=== PATIENT | male | born 1940 | race Caucasian/White ===

== ENCOUNTER 2016-09-22 09:12 | Inpatient (IN) | payer MEDICARE ==
[~2016-09-22] VITALS: Ht 185.4 cm; Wt 105.7 kg
[2016-09-22] MEDS ORDERED: CELE200C PO (09:47)
[2016-09-22] MEDS ORDERED: DIPH25TA2 PO (09:47)
[2016-09-22] MEDS ORDERED: EYECAP PO (09:47)
[2016-09-22] MEDS ORDERED: ASPI1TAB69 PO (09:47)
[2016-09-22] MEDS ORDERED: VESI5TAB PO (09:47)
[2016-09-22] MEDS ORDERED: MULTTAB67 PO (09:47)
[2016-09-22] MEDS ORDERED: ACET500T3 PO (09:47)
[2016-09-22] MEDS ORDERED: HYDR-3583 PO (09:47)
[2016-09-22] MEDS ORDERED: FLUT1SPR5 EACH NARE (09:47)
[2016-09-22] MEDS ORDERED: MUCI600T PO (09:47)
[2016-09-22] MEDS ORDERED: LIPI20TA PO (09:47)
[2016-09-22] MEDS ORDERED: ATAC16TA PO (09:47)
[2016-10-02] MEDS ORDERED: CHLORHEXIDINE GLUCONATE 4% SOLN 120 ML BTL TOP SCH (07:30)
[2016-10-02] MEDS ORDERED: SODIUM CHLORID 0.9% 500 ML IV SCH (07:30)
[2016-10-02] MEDS ORDERED: LACTATED RINGER'S 1000 ML IV SCH (07:30)
[2016-10-02] MEDS ORDERED: INSULIN HUMAN REGULAR 1,000 UNITS/10 ML VIAL SQ PRN (07:30)
[2016-10-02] MEDS ORDERED: ceFAZolin 2 GM PREMIX 50 ML IV SCH (07:30)
[2016-10-02] MEDS ORDERED: METOPROLOL TARTRATE 25 MG TAB PO PRN (07:30)
[2016-10-02 07:55] VITALS: BP 136/79; PULSE 86; RESP 20; TEMP 97.3; O2SAT 97
[2016-10-02] MEDS ORDERED: EXPAREL PERI-ARTICULAR INJECTION (TOTAL VOL. 60 ML) P-ARTICULR SCH ×2 (10:00)
[2016-10-02] MEDS ORDERED: TRANEXAMIC ACID IV SCH ×2 (10:00→13:00)
[2016-10-02] MEDS ORDERED: SODIUM CHLORIDE 0.9% IV SCH ×2 (10:00→13:00)
== END 2016-10-02 08:40 | disposition home or self-care (01) | DRG 554 ==
LOC: HSDI 10-02 06:59 → EDUNIT# 10-02 10:00
PROVIDERS: ADMIT Orthopaedic Surgery; ATTEND Orthopaedic Surgery
DX: M19.011 Primary osteoarthritis, right shoulder (principal); I10 Essential (primary) hypertension; Z53.09 Procedure and treatment not carried out because of other contraindication
CPT/HCPCS: 99211; G0463

== ENCOUNTER → 2016-09-22 | Outpatient (CLI) | payer MEDICARE ==
[~2016-09-22] MED LIST: ACET500T3 PO; ASPI1TAB69 PO; ATAC16TA PO; CELE200C PO; DIPH25TA2 PO; EYECAP PO; FLUT1SPR5 EACH NARE; HYDR-3516 PO; HYDR-3583 PO; LIPI20TA PO; MUCI600T PO; MULTTAB67 PO; VESI5TAB PO
[2016-09-22 09:40] LABS: MEAN CELL VOLUME 88.7 FL (80.0-100.0); MEAN CORPUSCULAR HEMOGLOBIN 30.2 PG (27.0-34.0); PLATELET COUNT 212 TH/MM3 (150-450); RED BLOOD COUNT 4.85 MIL/MM3 (4.50-5.90); RED CELL DISTRIBUTION WIDTH 13.1 % (11.6-17.2); REVIEW FLAG FINAL; WHITE BLOOD COUNT 6.4 TH/MM3 (4.0-11.0)
[2016-09-22 09:49] LABS: APTT (PATIENT) 28.2 SEC (24.3-30.1); PROTHROMBIN TIME - PATIENT 11.6 SEC (9.8-11.6)
[2016-09-22 10:08] LABS: BICARBONATE 28.4 MEQ/L (21.0-32.0); POTASSIUM 4.6 MEQ/L (3.5-5.1)
[2016-09-22 10:09] LABS: BLOOD, URINE SMALL (NEG); COMMENT (UR) CULT NOT INDICATED; CULTURE IF INDICATED CULT NOT INDICATED; GLUCOSE,URINE NEG (NEG); KETONE, URINE NEG (NEG); MUCUS URINE FEW /lpf (OCC); NITRITE,URINE NEG (NEG); PH, URINE 5.5 (5.0-8.5); SQUAMOUS EPITHELIAL CELL URINE 1 /hpf (0-5); URINE COLOR YELLOW (YELLW/STRAW)
--- NOTE | 2016-09-23 18:18 | EKG ---
Date Performed: 09/22/2016 Time Performed: 09:39:57 PTAGE: 75 years EKG: Sinus rhythm INFERIOR MYOCARDIAL INFARCTION, PROBABLY OLD ABNORMAL ECG NO PREVIOUS TRACING DOCTOR: Jose Tinsley Interpretating Date/Time 09/23/2016 18:13:28
== END ==
LOC: CPRE 09:06
PROVIDERS: ATTEND Orthopaedic Surgery
DX: Z01.812 Encounter for preprocedural laboratory examination (principal); Z01.810 Encounter for preprocedural cardiovascular examination; M19.011 Primary osteoarthritis, right shoulder; M79.609 Pain in unspecified limb; I10 Essential (primary) hypertension; I25.2 Old myocardial infarction
CPT/HCPCS: 36415; 80048; 81001; 85027; 85610; 85730; 93005

== ENCOUNTER 2016-10-12 05:07 | Day surgery (SDC) | payer MEDICARE ==
[~2016-10-12] VITALS: Ht 185.4 cm; Wt 104.5 kg
[~2016-10-12 05:07] MED LIST changes: -HYDR-3516 PO
[2016-10-12] MEDS ORDERED: METOPROLOL TARTRATE 25 MG TAB PO PRN (05:45)
[2016-10-12] MEDS ORDERED: INSULIN HUMAN REGULAR 1,000 UNITS/10 ML VIAL SQ PRN (05:45)
[2016-10-12] MEDS ORDERED: CHLORHEXIDINE GLUCONATE 4% SOLN 120 ML BTL TOP SCH (05:45)
[2016-10-12 05:47] VITALS: BP 139/78; PULSE 88; RESP 16; TEMP 98.6; O2SAT 97
[2016-10-12 06:00] VITALS: PULSE 86
[2016-10-12] MEDS ORDERED: ceFAZolin 2 GM PREMIX 50 ML IV SCH (06:00)
[2016-10-12] MEDS ORDERED: EXPAREL PERI-ARTICULAR INJECTION (TOTAL VOL. 60 ML) P-ARTICULR SCH ×2 (07:00)
[2016-10-12] MEDS ORDERED: SODIUM CHLORIDE 0.9% IV SCH ×2 (07:00→10:00)
[2016-10-12] MEDS ORDERED: TRANEXAMIC ACID IV SCH ×2 (07:00→10:00)
[2016-10-12] MEDS ORDERED: LACTATED RINGER'S 1000 ML IV SCH (07:00)
[2016-10-12] MEDS ORDERED: SODIUM CHLORID 0.9% 500 ML IV SCH (07:00)
== END 2016-10-12 06:30 | disposition home or self-care (01) ==
LOC: UNDOADMIN 05:07 → HSDI 05:07 → HSDC 05:07 → HSDI 05:07 → UNDODISIN 06:30 → HSDC 06:30 → EDSTATUS 07:00
PROVIDERS: ATTEND Orthopaedic Surgery
DX: M19.011 Primary osteoarthritis, right shoulder (principal); Z53.09 Procedure and treatment not carried out because of other contraindication
CPT/HCPCS: G0463; J7120; 99211

== ENCOUNTER 2016-10-23 16:42 | Inpatient (IN) | payer MEDICARE ==
[~2016-10-23] VITALS: Ht 185.4 cm; Wt 110.0 kg
[2016-10-24] MEDS ORDERED: METOPROLOL TARTRATE 25 MG TAB PO PRN (10:30)
[2016-10-24] MEDS ORDERED: ceFAZolin 2 GM PREMIX 50 ML ONE (10:30)
[2016-10-24] MEDS ORDERED: POVIDONE IODINE 5% (ANTISEPSIS KIT) 4 APPLICATIONS EACH NARE PRN (10:30)
[2016-10-24] MEDS ORDERED: INSULIN HUMAN REGULAR 1,000 UNITS/10 ML VIAL SQ PRN (10:30)
[2016-10-24] MEDS ORDERED: GENTAMICIN SULFATE 80 MG/2 ML VIAL ONE ×2 (10:30)
[2016-10-24] MEDS ORDERED: SODIUM CHLORID 0.9% 500 ML IV PRN (10:30)
[2016-10-24] MEDS ORDERED: LACTATED RINGER'S 1000 ML IV PRN (10:30)
[2016-10-24 10:35] VITALS: BP 103/68; PULSE 91; RESP 17; TEMP 98.9; O2SAT 95
[2016-10-24] MEDS ORDERED: ceFAZolin 2 GM PREMIX 50 ML IV SCH (10:45)
[2016-10-24 10:52] LABS: AUTOMATED NEUTROPHIL # 6.2 TH/MM3 (1.8-7.7); BASOPHIL % 0.5 % (0.0-2.0); EOSINOPHIL # 0.3 TH/MM3 (0-0.4); EOSINOPHIL % 3.7 % (0.0-4.0); HEMATOCRIT 42.2 % (39.0-51.0); HEMO FLAGS DIFF FINAL; LYMPH % 18.9 % (9.0-44.0); LYMPHOCYTE # 1.7 TH/MM3 (1.0-4.8); MEAN CELL VOLUME 88.3 FL (80.0-100.0); MEAN CORPUSCULAR HEMOGLOBIN 30.6 PG (27.0-34.0); MEAN CORPUSCULAR HGB CONC 34.6 % (32.0-36.0); MONO % 8.8 % (0.0-8.0); NEUT % 68.1 % (16.0-70.0); PLATELET COUNT 199 TH/MM3 (150-450); RED BLOOD COUNT 4.78 MIL/MM3 (4.50-5.90); RED CELL DISTRIBUTION WIDTH 13.7 % (11.6-17.2); WHITE BLOOD COUNT 9.1 TH/MM3 (4.0-11.0)
[2016-10-24] MEDS ORDERED: TRANEXAMIC ACID INJ 1,050 MG in SODIUM CHLORIDE 0.9% INJ 100 ML IV SCH ×2 (11:00→14:00)
[2016-10-24] MEDS ORDERED: EXPAREL PERI-ARTICULAR INJECTION (TOTAL VOL. 60 ML) P-ARTICULR SCH ×2 (11:00)
[2016-10-24] MEDS ORDERED: RESP: ALBUTEROL 2.5 MG/IPRATROPIUM 0.5 MG NEB (SCH) ONE (11:40)
[2016-10-24] MEDS ORDERED: MIDAZOLAM HCL 2 MG/2 ML VIAL ONE ×2 (11:41→11:57)
[2016-10-24] MEDS ORDERED: FAMOTIDINE 20 MG/2 ML VIAL ONE ×2 (11:41→11:57)
[2016-10-24] MEDS ORDERED: fentaNYL CITRATE 250 MCG/5 ML AMP ONE (11:57)
[2016-10-24] MEDS ORDERED: DEXAMETHASONE SOD PHOS 4 MG/ML VIAL ONE (11:57)
[2016-10-24] MEDS ORDERED: NEOSTIGMINE METHYLSULFATE 10 MG/10 ML VIAL IV PUSH ONE (12:00)
[2016-10-24] MEDS ORDERED: PROPOFOL 200 MG/20 ML AMP IV ONE (12:00)
[2016-10-24] MEDS ORDERED: PHENYLEPH/NS 1000 MCG/10 ML SYR IV ONE (12:00)
[2016-10-24] MEDS ORDERED: LACTATED RINGER'S 1000 ML INJ 1,000 ML IV ONE (12:00)
[2016-10-24] MEDS ORDERED: ONDANSETRON HCL 4 MG/2 ML VIAL IV PUSH ONE (12:00)
[2016-10-24] MEDS ORDERED: SODIUM CHLORID 0.9% 500 ML INJ 500 ML IV ONE (12:00)
[2016-10-24] MEDS ORDERED: GENTAMICIN SULFATE 80 MG/2 ML VIAL IRRIGATION ONE (13:05)
[2016-10-24] MEDS ORDERED: MAGNESIUM HYDROXIDE SUSP 30 ML CUP PO PRN (16:15)
[2016-10-24] MEDS ORDERED: ZOLPIDEM TARTRATE 5 MG TAB PO PRN (16:15)
[2016-10-24] MEDS ORDERED: CELECOXIB 200 MG CAP PO PRN (16:15)
[2016-10-24] MEDS ORDERED: diphenhydrAMINE HCL 25 MG CAP PO PRN (16:15)
[2016-10-24] MEDS ORDERED: MORPHINE SULFATE 8 MG/ML INJ IV PUSH PRN (16:15)
[2016-10-24] MEDS ORDERED: SODIUM CHLORIDE 0.9% FLUSH 5 ML FLUSH IVF PRN (16:15)
[2016-10-24] MEDS ORDERED: guaiFENesin E.R. 600 MG TAB PO PRN (16:15)
[2016-10-24] MEDS ORDERED: ACETAMINOPHEN/HYDROcodone 325 MG/5 MG TAB PO PRN (16:15)
[2016-10-24] MEDS ORDERED: Post-op Orders (for Pharmacy) MISC XX ONE (16:15)
[2016-10-24] MEDS ORDERED: ONDANSETRON HCL 4 MG/2 ML VIAL IVP PRN (16:15)
[2016-10-24] MEDS ORDERED: oxyCODONE/ACETAMINOPHEN 5 MG/325 MG TAB PO PRN ×2 (16:15)
[2016-10-24] MEDS ORDERED: TRANEXAMIC ACID INJ 0 MG in SODIUM CHLORIDE 0.9% INJ 100 ML IV SCH (16:15)
[2016-10-24 16:20] VITALS: O2SAT 95
[2016-10-24] MEDS ORDERED: LACTATED RINGER'S 1000 ML INJ 1,000 ML IV SCH (17:00)
[2016-10-24] MEDS: KETOROLAC TROMETHAMINE 30 MG/ML (IVP) VIAL IVP SCH (17:10)
--- NOTE | 2016-10-24 18:05 | RADRPT ---
EXAM DATE/TIME: 10/24/2016 16:39 [place] COMPARISON: No previous studies available for comparison. INDICATIONS : Post op right shoulder surgery. MEDICAL HISTORY : Unobtainable. SURGICAL HISTORY : Unobtainable. ENCOUNTER: Initial ACUITY: 1 day PAIN SCORE: 0/10 LOCATION: Bilateral chest FINDINGS: Right shoulder arthroplasty is present. The hardware appears intact. Alignment is anatomic. The adjac ent clavicle and ribs are intact and unremarkable. CONCLUSION: Satisfactory postoperative appearance Duglas Haji MD on October 24, 2016 at 18:02 Board Certified Radiologist. This report was verified electronically.
--- NOTE | 2016-10-24 18:59 | HHI.FF ---
Face to Face Verification Diagnosis: (1) Status post replacement of right shoulder joint Occupational Therapy Right UE Weight Bearing: Non WB Right UE Range of Motion: Pendular (AROM, AAROM, table slides.) Additional Instructions Do not externally rotate beyond neutral. No resistance in internal rotation. Nursing Nursing: Dressing changes Dressing Changes: Daily dressing change, Coverderm/Primapore Additional Instructions Remove steristrips on postop day 14. I have seen patient Nabeel Galloway on 10/24/16. My clinical findings support the need for the requested home health care services because: Ltd mobility - disease progression Limited ability to care for self High risk of falls I certify that my clinical findings support that this patient is homebound because: Post-op weakness Unsteady gait/balance Unsafe to leave home unassisted Niya Sarah MD ([facility]) Oct 24, 2016 18:59
[2016-10-24 19:05] VITALS: BP_SYST 105; BP_SYST 148; BP_DIAS 56; BP_DIAS 72; PULSE 118; PULSE 119; RESP 18; RESP 19; TEMP 96.5; TEMP 97.3; O2SAT 95; O2SAT 98
[2016-10-24] MEDS ORDERED: ATORVASTATIN 20 MG TAB PO SCH (21:00)
[2016-10-24] MEDS: SODIUM CHLORIDE 0.9% FLUSH 5 ML FLUSH IVF SCH (21:00)
--- NOTE | 2016-10-24 23:51 | PD.CONS ---
[facility] By [facility] Sarah Reason for Consult medical management Primary Care Physician Ernie Landa MD Diagnoses: History of Present Illness patient is a 75 y/o male with history of surgery and osteoarthritis of the right shoulder who underwent right shoulder total arthroplasty earlier today. at the time of my evaluation he was resting comfortably with no distress. had minimal pain to the right shoulder. he otherwise denies any chest pain, sob, nausea or dizziness. Review of Systems Constitutional: DENIES: Fever, Weight loss, Chills, Night Sweats Eyes: DENIES: Blurred vision, Diplopia, Vision loss, Double Vision Ears, nose, mouth, throat: DENIES: Tinnitus, Vertigo, Throat pain, Epistaxis Respiratory: DENIES: Apneas, Cough, Snoring, Wheezing, Hemoptysis, Sputum production, Shortness of breath Cardiovascular: DENIES: Chest pain, Palpitations, Syncope, Dyspnea on Exertion , PND, Lower Extremity Edema, Orthopnea, Claudication Gastrointestinal: DENIES: Abdominal pain, Black stools, Bloody stools, Constipation, Diarrhea, Nausea, Vomiting, Difficulty Swallowing, Anorexia Genitourinary: DENIES: Urinary frequency, Urgency, Hematuria, Dysuria Musculoskeletal: COMPLAINS OF: Joint pain (right shoulder), DENIES: Muscle aches, Stiffness, Joint Swelling Integumentary: DENIES: Rash Neurologic: DENIES: Abnormal gait, Headache, Localized weakness, Paresthesias, Seizures, Speech Problems, Tremor, Poor Balance Psychiatric: DENIES: Anxiety, Confusion, Mood changes, Depression, Hallucinations, Agitation, Suicidal Ideation, Homicidal Ideation, Delusions Past Family Social History Allergies: Coded Allergies: Hibiclens (Verified Allergy, Unknown, Rash, 10/24/16) Past Medical History osteoarthritis hypertension dyslipidemia Past Surgical History rotator cuff repair appendectomy Reported Medications atacand atorvastatin aspirin celebrex vesicare Active Ordered Medications Current Medications Lactated Ringer's 1,000 ml @ 0 mls/hr Q0M PRN IV SEE LABEL COMMENTS Last administered on 10/24/16t 10:40; Start 10/24/16 at 10:30; Stop 10/24/16 at 16:35; Status DC Sodium Chloride (NS 500 ml Inj) 500 ml @ 30 mls/hr [id number] PRN IV SEE LABEL COMMENTS; Start 10/24/16 at 10:30; Stop 10/27/16 at 10:29 Metoprolol Tartrate (Lopressor) 25 mg INSPECTION ENGINEER PRN PO SEE LABEL COMMENTS; Start 10/24/16 at 10:30; Stop 10/24/16 at 16:35; Status DC Povidone Iodine (Betadine 5% Antisepsis Kit) 1 applic INSPECTION ENGINEER PRN EACH NARE SEE LABEL COMMENTS; Start 10/24/16 at 10:30; Stop 10/27/16 at 10:29 Insulin Human Regular See Protocol Table ... INSPECTION ENGINEER PRN SQ SEE PROTOCOL TABLE ; Start 10/24/16 at 10:30; Stop 10/24/16 at 16:35; Status DC Cefazolin Sodium/ Dextrose 50 ml @ 100 mls/hr INSPECTION ENGINEER IV Last administered on 10/24/16 12:38; Start 10/24/16 at 10:45; Stop 10/27/16 at 10:44 Tranexamic Acid 1050 mg/Sodium Chloride 110.5 ml @ 200 mls/hr ONCE IV Last administered on 10/24/16 12:49; Start 10/24/16 at 11:00; Stop 10/24/16 at 17:00; Status DC Tranexamic Acid 1050 mg/Sodium Chloride 110.5 ml @ 200 mls/hr ONCE IV Last administered on 10/24/16 15:50; Start 10/24/16 at 14:00; Stop 10/24/16 at 20:00; Status DC Bupivacaine Liposome 20 ml/ Sodium Chloride 60 ml @ 120 mls/hr ONCE P-ARTICULR Last administered on 10/24/16 13:05; Start 10/24/16 at 11:00; Stop 10/24/16 at 14:00; Status DC Cefazolin Sodium/ Dextrose (Ancef 2 Gm Premix) 50 ml @ As Directed STK-MED ONCE .ROUTE ; Start 10/24/16 at 10:30; Stop 10/24/16 at 10:31; Status DC Gentamicin Sulfate (Gentamicin Inj) 160 mg STK-MED ONCE .ROUTE ; Start 10/24/16 at 10:30; Stop 10/24/16 at 10:31; Status DC Gentamicin Sulfate (Gentamicin Inj) 80 mg STK-MED ONCE .ROUTE ; Start 10/24/16 at 10:30; Stop 10/24/16 at 10:31; Status DC Albuterol/ Ipratropium (Duoneb Neb) 1 ampule STK-MED ONCE .ROUTE ; Start at 11:40; Stop 10/24/16 at 11:41; Status DC Midazolam HCl (Versed Inj) 2 mg STK-MED ONCE .ROUTE Last administered on 11:44; Start 10/24/16 at 11:41; Stop 10/24/16 at 11:42; Status DC Famotidine (Pepcid Inj) 20 mg STK-MED ONCE .ROUTE Last administered on 11:42; Start 10/24/16 at 11:41; Stop 10/24/16 at 11:42; Status DC Midazolam HCl (Versed Inj) 2 mg STK-MED ONCE .ROUTE ; Start 10/24/16 at 11:57; Stop 10/24/16 at 11:58; Status DC Fentanyl Citrate (fentaNYL INJ) 250 mcg STK-MED ONCE .ROUTE ; Start 10/24/16 at 11:57; Stop 10/24/16 at 11:58; Status DC Dexamethasone Sodium Phosphate (Decadron Inj) 4 mg STK-MED ONCE .ROUTE ; Start 10/24/16 at 11:57; Stop 10/24/16 at 11:58; Status DC Famotidine (Pepcid Inj) 20 mg STK-MED ONCE .ROUTE ; Start 10/24/16 at 11:57; Stop 10/24/16 at 11:58; Status DC Gentamicin Sulfate 240 mg 240 mg STK-MED ONCE IRRIGATION Last administered on 13:05; Start 10/24/16 at 13:05; Stop 10/24/16 at 13:26; Status DC Lactated Ringer's (Lr 1000 ml Inj) 1,000 ml @ 80 mls/hr [id number] IV Last administered on 10/24/16 17:00; Start 10/24/16 at 17:00 IV Flush (NS Flush) 2 ml UNSCH PRN IVF FLUSH AFTER USING IV ACCESS; Start at 16:15 IV Flush 2 ml 2 ml BID IVF ; Start 10/24/16 at 21:00 Cefazolin Sodium/ Sodium Chloride (Ancef Inj/NS Inj) 100 ml @ 200 mls/hr Q6H IV Last administered on 10/24/16 18:45; Start 10/24/16 at 18:00; Stop 10/25/16 at 06:29 Miscellaneous Information (Post-op Orders (for Pharmacy)) STAT ONCE XX ; Start 10/24/16 at 16:15; Stop 10/24/16 at 16:30; Status DC Morphine Sulfate (Morphine Inj) 5 mg Q3H PRN IV PUSH BREAKTHROUGH PAIN; Start 10/24/16 at 16:15 Acetaminophen/ Hydrocodone Bitart ([place] 5-325 Mg) 1 tab Q4H PRN PO PAIN LESS THAN 5 ON SCALE; Start 10/24/16 at 16:15 Acetaminophen/ Hydrocodone Bitart ([place] 5-325 Mg) 2 tab Q4H PRN PO PAIN SCALE 5 TO 10; Start 10/24/16 at 16:15 Oxycodone/ Acetaminophen (Percocet 5-325 Mg) 1 tab Q4H PRN PO PAIN LESS THAN 5 ON SCALE; Start 10/24/16 at 16:15; Status Cancel Oxycodone/ Acetaminophen (Percocet 5-325 Mg) 2 tab Q4H PRN PO PAIN SCALE 5 TO 10; Start 10/24/16 at 16:15; Status UNV Ketorolac Tromethamine 15 mg 15 mg Q6H IVP Last administered on 10/24/16 17:10 ; Start 10/24/16 at 17:00; Stop 10/26/16 at 11:01 Tranexamic Acid/ Sodium Chloride (Cyklokapron Inj/ NS Inj) 100 ml @ 200 mls/hr UNSCH IV ; Start 10/24/16 at 16:15; Stop 10/24/16 at 16:27; Status DC Ondansetron HCl (Zofran Inj) 4 mg Q6H PRN IVP NAUSEA OR VOMITING; Start at 16:15 Docusate Sodium (Colace) 100 mg BID PO ; Start 10/25/16 at 21:00 Zolpidem Tartrate (Ambien) 5 mg HS PRN PO SLEEP; Start 10/24/16 at 16:15 Magnesium Hydroxide (Milk Of Magnesia Liq) 30 ml DAILY PRN PO CONSTIPATION; Start 10/24/16 at 16:15 Aspirin (Ecotrin Ec) 81 mg DAILY PO ; Start 10/25/16 at 09:00 Atorvastatin Calcium (Lipitor) 20 mg HS PO ; Start 10/24/16 at 21:00 Celecoxib (CeleBREX) 200 mg BID PRN PO INFLAMMATORY PAIN; Start 10/24/16 at 16: 15 Diphenhydramine HCl (Benadryl) 25 mg Q6H PRN PO ALLERGIES; Start 10/24/16 at 16: 15 Guaifenesin (Mucinex Er) 600 mg BID PRN PO NASAL CONGESTION AND/OR COUGH; Start 10/24/16 at 16:15 Multivitamins (Theragran) 1 tab DAILY PO ; Start 10/25/16 at 09:00 Non-Formulary Medication 16 mg DAILY PO BPM; Start 10/25/16 at 09:00; Status UNV Non-Formulary Medication 1 cap DAILY PO NS; Start 10/25/16 at 09:00; Stop at 09:00; Status DC Non-Formulary Medication 5 mg DAILY PO ; Start 10/25/16 at 09:00; Status UNV Tolterodine Tartrate (Detrol La) 2 mg DAILY PO ; Start 10/25/16 at 09:00 Losartan Potassium (Cozaar) 50 mg DAILY PO ; Start 10/25/16 at 09:00 Family History not relevant to this consult. Social History doesn't smoke or drink. Physical Exam Vital Signs Vital Signs Date Time Temp Pulse Resp B/P Pulse Ox O2 Delivery O2 Flow Rate FiO2 10/24/16 18:45 97.5 108 16 140/72 96 Nasal Cannula 2 10/24/16 17:45 102 15 135/70 94 Nasal Cannula 2 10/24/16 17:30 103 15 132/71 94 Nasal Cannula 2 10/24/16 17:15 101 15 129/74 98 Nasal Cannula 3 10/24/16 17:00 102 14 125/75 96 Nasal Cannula 3 10/24/16 16:45 107 14 129/77 95 Nasal Cannula 3 10/24/16 16:30 110 13 127/74 97 Nasal Cannula 4 10/24/16 16:20 98.3 106 12 128/70 95 Nasal Cannula 4 10/24/16 10:35 98.9 91 17 103/68 95 Physical Exam GENERAL: This is a well-nourished, well-developed patient, in no apparent distress. SKIN: No rashes, ecchymoses or lesions. Cool and dry. HEAD: Atraumatic. Normocephalic. No temporal or scalp tenderness. EYES: Pupils equal round and reactive. Extraocular motions intact. No scleral icterus. No injection or drainage. ENT: Nose without bleeding, purulent drainage or septal hematoma. Throat without erythema, tonsillar hypertrophy or exudate. Uvula midline. Airway patent. NECK: Trachea midline. No JVD or lymphadenopathy. Supple, nontender, no meningeal signs. CARDIOVASCULAR: Regular rate and rhythm without murmurs, gallops, or rubs. RESPIRATORY: Clear to auscultation. Breath sounds equal bilaterally. No wheezes , rales, or rhonchi. GASTROINTESTINAL: Abdomen soft, non-tender, nondistended. No hepato-splenomegaly , or palpable masses. No guarding. MUSCULOSKELETAL: right shoulder in sling. NEUROLOGICAL: Awake and alert. Cranial nerves II through XII intact. Motor and sensory grossly within normal limits. Five out of 5 muscle strength in all muscle groups. Normal speech. Laboratory Laboratory Tests Test 10/24/16 10:41 White Blood Count 9.1 Red Blood Count 4.78 Hemoglobin 14.6 Hematocrit 42.2 Mean Corpuscular Volume 88.3 Mean Corpuscular Hemoglobin 30.6 Mean Corpuscular Hemoglobin 34.6 Concent Red Cell Distribution Width 13.7 Platelet Count 199 Mean Platelet Volume 8.1 Neutrophils (%) (Auto) 68.1 Lymphocytes (%) (Auto) 18.9 Monocytes (%) (Auto) 8.8 Eosinophils (%) (Auto) 3.7 Basophils (%) (Auto) 0.5 Neutrophils # (Auto) 6.2 Lymphocytes # (Auto) 1.7 Monocytes # (Auto) 0.8 Eosinophils # (Auto) 0.3 Basophils # (Auto) 0.0 CBC Comment DIFF FINAL Differential Comment Result Diagram: 10/24/16 1041 Imaging Last Impressions Shoulder X-Ray 10/24/16 0000 Signed Impressions: Service Date/Time: Monday, October 24, 2016 16:39 - CONCLUSION: Satisfactory postoperative appearance Duglas Haji MD Assessment and Plan Assessment and Plan A/P - osteoarthritis of the right shoulder- s/p right total shoulder arthroplasty continue pain control and PT- management per ortho. -hypertension/ dyslipidemia; resumed home meds -DVT prophylaxis with SCD's thank you for the consult. Discussed Condition With the patient. Cheko Moore MD Oct 24, 2016 23:51
[2016-10-25] MEDS: KETOROLAC TROMETHAMINE 30 MG/ML (IVP) VIAL IVP SCH ×2 (00:53→05:59)
[2016-10-25 01:10] VITALS: BP 144/80; PULSE 118; RESP 18; TEMP 96.6; O2SAT 94
[2016-10-25] MEDS: ACETAMINOPHEN/HYDROcodone 325 MG/5 MG TAB PO PRN ×2 (01:20→07:54)
[2016-10-25 04:30] VITALS: BP 105/55; PULSE 96; RESP 18; TEMP 96.3; O2SAT 92
[2016-10-25 07:10] LABS: HEMATOCRIT 35.9 % (39.0-51.0); REVIEW FLAG FINAL
--- NOTE | 2016-10-25 07:29 | PD.ORT.PN ---
Subjective Post Op Day #: 1 Subjective Remarks He has had virtually no pain. He is happy with the result so far. The block effect abated at about 0200. Distance Walked 40 side steps in PACU. Objective Vitals Vital Signs Date Time Temp Pulse Resp B/P Pulse Ox O2 Delivery O2 Flow Rate FiO2 10/25/16 04:30 96.3 96 18 105/55 92 10/25/16 01:10 96.6 118 18 144/80 94 10/24/16 19:05 96.5 118 18 148/72 95 10/24/16 18:45 97.5 108 16 140/72 96 Nasal Cannula 2 10/24/16 17:45 102 15 135/70 94 Nasal Cannula 2 10/24/16 17:30 103 15 132/71 94 Nasal Cannula 2 10/24/16 17:15 101 15 129/74 98 Nasal Cannula 3 10/24/16 17:00 102 14 125/75 96 Nasal Cannula 3 10/24/16 16:45 107 14 129/77 95 Nasal Cannula 3 10/24/16 16:30 110 13 127/74 97 Nasal Cannula 4 10/24/16 16:20 98.3 106 12 128/70 95 Nasal Cannula 4 10/24/16 10:35 98.9 91 17 103/68 95 I/O 10/24/16 10/24/16 10/24/16 10/25/16 10/25/16 10/25/16 07:00 15:00 23:00 07:00 15:00 23:00 Intake Total 2370 ml 480 ml Output Total 400 ml 550 ml Balance 1970 ml -70 ml Intake Oral 720 ml 480 ml IV Total 150 ml Other 1500 ml Output Urine Total 100 ml 550 ml Estimated Blood Loss 300 ml # Voids 1 # Bowel Movements 0 0 Result Diagram: 10/25/16 0631 Imaging Shoulder x-ray looks good. Last 72 hours Impressions Shoulder X-Ray 10/24/16 0000 Signed Impressions: Service Date/Time: Monday, October 24, 2016 16:39 - CONCLUSION: Satisfactory postoperative appearance Duglas Haji MD Objective Remarks The dressing is dry and intact. The neurovascular status is intact. He has active contraction of the deltoid. Assessment & Plan Ortho Post Op Day #: 1 Problem List: (1) Status post replacement of right shoulder joint Plan: Continue postop care and PT/OT. Assessment and Plan Condition: Good. Orthopaedically stable. Discharge plans: Home with [facility]. Has appointment. Rx: [place] 7.5/325. Niya Sarah MD ([place]) Oct 25, 2016 07:29
[2016-10-25 07:50] VITALS: BP 127/69; PULSE 86; RESP 17; TEMP 96.5; O2SAT 93
[2016-10-25] MEDS: SODIUM CHLORIDE 0.9% FLUSH 5 ML FLUSH IVF SCH (07:54)
[2016-10-25] MEDS ORDERED: HYDR-3516 PO (07:56)
[2016-10-25] MEDS ORDERED: TOLTERODINE TARTRATE 2 MG CAP LA PO SCH (09:00)
[2016-10-25] MEDS ORDERED: CANDESARTAN 16 MG PO SCH (09:00)
[2016-10-25] MEDS ORDERED: MULTIPLE VITAMINS PO SCH (09:00)
[2016-10-25] MEDS ORDERED: LOSARTAN 50 MG TAB PO SCH (09:00)
[2016-10-25] MEDS ORDERED: MINERALS PO SCH (09:00)
[2016-10-25] MEDS ORDERED: ASPIRIN EC 81 MG TABEC PO SCH (09:00)
[2016-10-25] MEDS ORDERED: NON-FORMULARY DRUG (Solifenacin (Vesicare) 5 MG) PO SCH (09:00)
[2016-10-25] MEDS ORDERED: MULTIVITAMIN TAB PO SCH (09:00)
--- NOTE | 2016-10-25 12:01 | HHI.PR ---
Addendum to Inpatient Note Addendum Reason: Additional Documentation Additional Information Appears stable medically. VSS Cleared by hospitalist for DC to follow up as OP Berenice Ang MD Oct 25, 2016 12:00
[2016-10-25] MEDS ORDERED: DOCUSATE SODIUM 100 MG CAP PO SCH (21:00)
--- NOTE | 2016-10-26 17:29 | MP ---
cc: Allyson DOVE. DATE OF SURGERY: 10/24/2016. PREOPERATIVE DIAGNOSIS: Primary osteoarthritis right shoulder. POSTOPERATIVE DIAGNOSIS: Primary osteoarthritis right shoulder. OPERATIVE PROCEDURE PERFORMED: Right total shoulder arthroplasty with Bret ReUnion prosthesis. SURGEON: Hellen Dove MD ASSISTANTS: Cali ALCALA. ANESTHESIA: Interscalene block regional with supplemental local and general endotracheal. INDICATIONS AND FINDINGS: This 75-year-old man has had longstanding right shoulder pain which has been nonresponsive to conservative measures including anti-inflammatory agents, injections and the like. He has had crepitation on motion with pain on motion to the point that he does not elevate his arm away from the side of his body. He has x-rays that show eburnation and osteophytes. There is loss of joint space in the glenohumeral joint. A CT scan showed significant degeneration as well. The prosthesis used was a [place] ReUnion prosthesis. The glenoid is a size 48 / 3-peg cemented. The humeral stem was a size 16 uncemented. The humeral head was a 48 x 25-mm concentric head. DESCRIPTION OF THE PROCEDURE IN DETAIL: The patient was brought to the operating room and a regional anesthetic and general anesthetic were administered. He was placed in a semi-Hester position on the operating table with a bolster behind the right scapula. The right shoulder was then prepped with alcohol, Betadine and Betadine prep. The shoulder was draped in the usual manner and draped free. He received prophylactic antibiotics in the form of Ancef preoperatively according to protocol and also he received tranexamic acid to assist with hemostasis. After an appropriate time-out procedure, local anesthetic was administered into the incision site which had been previously marked prior to placing the impervious plastic drapes. The incision was then made from the area of the clavicle just over the coracoid down anteriorly to the axilla. The incision was deepened through the subcutaneous tissues to the deltopectoral groove. The deltopectoral groove was then developed taking care to shift the cephalic vein towards the deltoid. The clavipectoral fascia was opened in the area of the coracoacromial ligament. This was then carried down along the lateral border of the conjoined tendon. Palpation behind this area identified the axillary nerve which was protected during the procedure. A self-retaining retractor was placed. The rotator interval was identified. Electrocautery was used to open this. Copious amounts of fluid were vacuumed from this joint. This was then carried up to the base of the coracoid and then back down to the greater tuberosity. The subscapularis was then tagged and carefully dissected from the lesser tuberosity. After this was done, a secondary tag was carried out distally and the subscapularis and capsule were dropped into the soft tissues. Dissection was then carried out about the proximal humerus going down to the edge of the osteophytes which were then trimmed with rongeurs. The humeral cutting guide was then positioned in place with 30 degrees of retroversion. Cutting guide was stabilized with pins. The proximal humeral cut was made with the oscillating saw. The humeral head fragment was removed. The remainder of the osteophytes were trimmed. Humeral preparation was then started first with the starter awl and then starting at 7 mm and after going directly to 10 mm. The reaming was then carried out to 15 mm. Broaching was then carried out starting at 10 mm and going up to 15 mm. At 15 mm, this was relatively was therefore further reaming was carried out to 16 mm. A 16 mm broach was carefully positioned in place. The retractors were then placed about the glenoid. Osteophytes were trimmed carefully. The anterior capsulotomy was carried out and releasing the capsule from the subscapularis. This was carried up to the 12 o'clock position and down to the 7 o'clock position taking care to protect neurovascular structures. Osteophytes were trimmed. The center of the glenoid was identified with the 48-mm trial prosthesis. This was marked with electrocautery. A small drill hole was initiated in this site. The drill guide was positioned and the drill hole was completed. Reaming was then carried out with a 48 mm reamer. This went down to the appropriate size. The inferior margin was trimmed with rongeur. The 48-mm trial prosthesis was again positioned and appeared appropriate. The drill guide was positioned in place and the distal two drill holes were made for the pegged prosthesis. The proximal two drill holes were then made. These were sounded and found to be intact. The trial impactor was placed into place and appeared appropriate as well. The bone was then irrigated well with antibiotic solution. The holes were then suctioned and dried prior to placing Simplex cement into the holes. After the simplex cement was inserted into the holes, the prosthesis was positioned in place and impacted and seated appropriately. This gave excellent fixation. As the cement cured, attention was directed back to the humerus and humeral head. Sizing was carried out. It was felt that the 48 mm size would be appropriate for this as well. The 48 x 25 mm appeared to be appropriate. The trial prosthesis was removed. The broach was removed. The medullary canal was irrigated. The actual prosthesis was then impacted into place and seated appropriately. This gave good positioning. Retrial was then carried out to verify the proper position. Exparel was then injected throughout the shoulder joint. The actual humeral head prosthesis was then positioned in place after cleaning the proximal humeral prosthesis and removing blood and drying this. When this was appropriately seated, the shoulder was reduced. The range of motion was excellent. The stability was excellent. The subscapularis was then repaired back to the lesser tuberosity with #2 FiberWire, Alfred Terry sutures and [id number] sutures. The rotator interval was closed with #2 FiberWire interrupted [id number] sutures. The deltopectoral interval was closed with 0 Vicryl interrupted [id number] sutures. The subcutaneous tissues were closed with 2-0 Vicryl interrupted simple sutures with buried knots. The skin was then closed with a continuous subcuticular closure of 4-0 Monocryl. The wound was dressed with Steri-Strips followed by dry dressing and Medipore compression shoulder dressing. He was placed into a sling and swath and transferred to the recovery room in satisfactory condition having tolerated procedure well. Counts were correct. Specimens none. Estimated blood loss 300 mL. MD AURELIA Diallo/JUAN /6:42 PM /5:02 PM
== END 2016-10-25 11:57 | disposition home health service (06) | DRG 483 ==
LOC: HSDI 10-24 09:42 → N06B 10-24 19:05
PROVIDERS: ADMIT Orthopaedic Surgery; ATTEND Orthopaedic Surgery
PROC: 3E0T3CZ (ICD-10-PCS; 2016-10-24)
PROC: 0RRJ0JZ Replacement of Right Shoulder Joint with Synthetic Substitute, Open Approach (ICD-10-PCS; principal; 2016-10-24 11:57)
DX: M19.011 Primary osteoarthritis, right shoulder (principal); I10 Essential (primary) hypertension; E78.5 Hyperlipidemia, unspecified
CPT/HCPCS: 73030; 85014; 85018; 85025; 94150; 94664; C1776; C9290; J0690; J1100; J1580; J1885; J2250; J2370; J2405; J2710; J3010; J7040; J7120